=== PATIENT | female | born 2000 | race African-American/Black ===

== ENCOUNTER 2019-09-28 13:47 | Emergency (ER) | payer MEDICAID ==
[~2019-09-28] VITALS: Ht 160 cm; Wt 77.3 kg
[2019-09-28 14:19] VITALS: Ht 160 cm; Wt 77.3 kg
[2019-09-28] MEDS ORDERED: AMOXICILLIN500 M1 PO (14:39)
[2019-09-28] MEDS ORDERED: NAPROSYN500 MG PO (14:39)
[2019-09-28 15:19] VITALS: BP 139/79
== END 2019-09-28 15:20 | disposition home or self-care (01) ==
LOC: D.ER 13:47
DX: H66.91 Otitis media, unspecified, right ear (principal); J06.9 Acute upper respiratory infection, unspecified